=== PATIENT | male | born 1965 | race Caucasian/White ===

== ENCOUNTER 2020-10-11 14:01 | Emergency (ER) | payer OTHER ==
[~2020-10-11] VITALS: Ht 180.3 cm; Wt 104.3 kg
[2020-10-11] MEDS ORDERED: ONDANSETRON ODT8 MG PO (15:52)
[2020-10-11] MEDS ORDERED: DECADRON6 MG PO (15:52)
[2020-10-11] MEDS ORDERED: TESSALON PERLE100 MG PO (15:52)
== END 2020-10-11 16:12 | disposition home or self-care (01) ==
LOC: ED 14:01
DX: U07.1 COVID-19 (principal); J12.82 Pneumonia due to coronavirus disease 2019; Z88.2 Allergy status to sulfonamides
CPT/HCPCS: 71045; 80053; 83735; 84484; 85025; 96374; 99285-25; C9803; J1100; J7030; U0003